=== PATIENT | female | born 2005 | race African-American/Black ===

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

== ENCOUNTER 2024-10-16 19:17 | Inpatient (IN) ==
[2024-10-16 20:23] LABS: Urine Appearance Clear; Urine Bilirubin Negative (Negative); Urine Blood Trace (Negative); Urine Color Yellow; Urine Glucose Negative (Negative); Urine Ketones 2+ (Negative); Urine Nitrite Negative (Negative); Urine Protein Trace (Negative); Urine Specific Gravity 1.036 (1.002-1.030); Urine Urobilinogen Negative (Negative); Urine pH 5.5 (5.0-8.0)
[2024-10-17 00:38] LABS: ABS Eosinophils 0.2 10^3/uL (0.0-0.5); ABS Lymphocytes 2.2 10^3/uL (1.0-4.8); ABS Monocytes 0.6 10^3/uL (0.0-0.9); ABS Neutrophils 3.5 10^3/uL (1.5-7.6); Hematocrit 38.7 % (35-45); Hemoglobin 13.3 g/dL (11.5-14.3); Mean Corpuscular Hemoglobin 30.3 pg (27-33); Mean Corpuscular Hgb Conc 34.2 g/dL (31-36); Mean Corpuscular Volume 88.6 fL (80-97); Platelet Count 332 10^3/uL (150-450); Red Blood Count 4.37 10^6/uL (3.63-4.92); Red Cell Distribution Width 13.4 % (12-17); White Blood Count 6.5 10^3/uL (3.8-11.8)
[2024-10-17 00:39] LABS: Eosinophil % 3.2 %; Lymphocyte % 33.1 %; Nucleated Red Blood Cells % 0.1 %/100WBC (0.0-0.8)
[2024-10-17 01:25] LABS: ALT 11 U/L (7-52); AST 15 U/L (13-39); Acetaminophen < 15 mcg/mL; Albumin 4.8 g/dL (3.2-5.2); Albumin/Globulin Ratio 2.3 (1-3); Alcohol, S < 13 mg/dL (<13); Alkaline Phosphatase 31 U/L (35-149); Anion Gap 9 mmol/L (2-16); Blood Urea Nitrogen 8 mg/dL (6-24); CO2 Carbon Dioxide 27 mmol/L (22-32); Calcium 9.9 mg/dL (8.6-10.3); Chloride 105 mmol/L (101-111); Creatinine, Serum 0.98 mg/dL (0.51-0.95); Globulin 2.1 g/dL (2-4); Glucose 94 mg/dL (70-100); Potassium 3.8 mmol/L (3.5-5.0); Salicylate < 2.50 mg/dL (<30); Sodium 141 mmol/L (135-145); Total Bilirubin 0.4 mg/dL (0.2-1.0); Total Protein 6.9 g/dL (6.4-8.9); eGFR CKD-EPI 84.7 (>60)
[2024-10-17 01:32] LABS: HCG Pregnancy < 0.60 mIU/mL
[2024-10-17] MEDS ORDERED: Al Hydrox/Mg Hydrox/Simet LIQ 30 ML UDC PO PRN (01:37)
[2024-10-17 01:41] LABS: TSH Ultra Thyroid Stim Horm 0.92 mcIU/mL (0.34-5.60)
[2024-10-17 07:46] LABS: Cholesterol 184 mg/dL; HDL Cholesterol 43.3 mg/dL; LDL Cholesterol 117 mg/dL; Triglycerides 121 mg/dL
[2024-10-17] MEDS: Vitamin THERAPEUTIC TAB PO SCH (10:19)
[2024-10-19 11:38] VITALS: BP 108/77
[2024-10-19] MEDS: Benzocaine/Menthol LOZ PO PRN ×2 (17:33→21:28)
== END 2024-10-20 12:56 | disposition home or self-care (01) | DRG 754 ==
LOC: ED 19:17 → EDHOLD 23:48 → BSU 10-17 02:01
PROVIDERS: ADMIT Psychiatry & Neurology Psychiatry; ATTEND Psychiatry & Neurology Psychiatry